=== PATIENT | male | born 1970 | race Asian ===

== ENCOUNTER 2017-03-26 16:50 | Emergency (ER) | payer OTHER, MEDICAID ==
[2017-03-26] MEDS ORDERED: DOXYcycline CAP(*) 100 MG PO ONE (18:52)
--- NOTE | 2017-03-26 18:52 | ED ---
Bite Injury/Animal - HPI Summary HPI Summary: 46M presents with tick bite to left side abdomen. He states he removed it with his fingers. He states he does not know how long it has been in. He has no allergies to medication. He denies any rash or fever. - History of Current Complaint Chief Complaint: MARLEYziggy Stated Complaint: TICK Time Seen by Provider: 03/26/17 18:45 - Allergies/Home Medications Allergies/Adverse Reactions: Allergies Allergy/AdvReac Type Severity Reaction Status Date / Time No Known Allergies Allergy Verified 04/03/15 11:53 PMH/Surg Hx/FS Hx/Imm Hx Endocrine/Hematology History: Denies: Hx Diabetes, Hx Thyroid Disease Cardiovascular History: Denies: Hx Congestive Heart Failure, Hx Hypertension, Hx Pacemaker/ICD Respiratory History: Denies: Hx Asthma, Hx Chronic Obstructive Pulmonary Disease (COPD) GI History: Reports: Other GI Disorders - present right upper quad pain Denies: Hx Cirrhosis, Hx Ulcer History: Denies: Hx Dialysis, Hx Renal Disease Musculoskeletal History: Reports: Other Musculoskeletal History - intermitteent neck and back pain Sensory History: Denies: Hx Hearing Aid Psychiatric History: Denies: Hx Panic Disorder - Surgical History Surgery Procedure, Year, and Place: hernia 2006 Infectious Disease History: Yes Infectious Disease History: Reports: Hx Hepatitis - HEP B Denies: Hx Human Immunodeficiency Virus (HIV), Traveled Outside the [place] in Last 30 Days - Family History Known Family History: Positive: Hypertension - Social History Alcohol Use: None Substance Use Type: Reports: None Smoking Status (MU): Never Smoked Tobacco Review of Systems Negative: Fever Negative: Chest Pain Negative: Shortness Of Breath Positive: Other - tick bite to lower abdomen All Other Systems Reviewed And Are Negative: Yes Physical Exam Triage Information Reviewed: Yes Vital Signs On Initial Exam: Initial Vitals Temp Pulse Resp BP Pulse Ox 97.3 F 59 16 116/81 97 03/26/17 18:39 03/26/17 18:39 03/26/17 18:39 03/26/17 18:39 03/26/17 18:39 Vital Signs Reviewed: Yes Appearance: Positive: Well-Appearing Skin: Positive: Other - area where redness to left lower abdominal wall where tick was Head/Face: Positive: Normal Head/Face Inspection Eyes: Positive: Normal, Conjunctiva Clear Respiratory/Lung Sounds: Positive: Clear to Auscultation, Breath Sounds Present Cardiovascular: Positive: Normal, RRR Diagnostics - Vital Signs Vital Signs Temp Pulse Resp BP Pulse Ox 03/26/17 18:39 97.3 F 59 16 116/81 97 - Laboratory Lab Statement: Any lab studies that have been ordered have been reviewed, and results considered in the medical decision making process. Bite Injury Course/Dx - Course Course Of Treatment: 46M presents with tick bite to lower abdomen that removed with fingers today. does not know how long has been there. discussed and will treat with doxcycline. patient understands and agrees with plan - Diagnoses Differential Diagnosis/HQI/PQRI: Positive: Puncture, Other - lyme disease, tick bite Provider Diagnosis: Tick bite of abdomen Discharge - Discharge Plan Condition: Good Disposition: HOME Patient Education Materials: Tick Bite (ED) Ref[place]: [facility] [place] [facility] [place] [facility] [Outside] Additional Instructions: You have been prophylactically treated for Lyme disease Use tweezers to remove any ticks and clean area afterwards Establish care with primary Return to ED if develop any rash or signs of infection
[2017-03-26 19:39] VITALS: BP 116/89
== END 2017-03-26 19:28 | disposition home or self-care (01) ==
LOC: UCEAST 16:50
DX: S30.861A Insect bite (nonvenomous) of abdominal wall, initial encounter (principal); W57.XXXA Bitten or stung by nonvenomous insect and other nonvenomous arthropods, initial encounter; Y93.9 Activity, unspecified; Y92.9 Unspecified place or not applicable; Z86.19 Personal history of other infectious and parasitic diseases
CPT/HCPCS: 99212; A9270-GY; G0463